=== PATIENT | female | born 1980 | race Caucasian/White ===

== ENCOUNTER → 2024-08-14 | Day surgery (SDC) | payer BC ==
[~2024-08-14] MED LIST: DEXAMETHASONE SOD PHOS INJ 4 MG/ML SDV ONE; FENTANYL CITRATE/PF 100MCG/2 ML INJ ONE; HAIR, SKIN AND1 EAC1; LACTATED RINGER'S 1,000 ML ONE; LIDOCAINE HCL 2% LOCAL INJ 5 ML SDV VIAL INJ ONE; MIDAZOLAM HCL 2 MG/2 ML VIAL ONE; OMEPRAZOLE40 MG PO; ONDANSETRON HCL INJ 2MG/ML 2ML 2 MG/ML VIAL ONE; PROPOFOL IV EMULSION 10 MG/ML 20 ML VIAL ONE
[2024-08-14] MEDS: CEFAZOLIN SODIUM 2 GM ONE (12:25)
[2024-08-14] MEDS: LACTATED RINGER'S 1,000 ML ONE (12:25)
[2024-08-14 15:05] VITALS: BP 118/69; PULSE 49; RESP 15; O2SAT 100
== END | disposition home or self-care (01) ==
LOC: OR 10:23
PROVIDERS: ATTEND Podiatrist Foot & Ankle Surgery
DX: M20.12 Hallux valgus (acquired), left foot (principal); M21.6X2 Other acquired deformities of left foot; K21.9 Gastro-esophageal reflux disease without esophagitis; Z88.1 Allergy status to other antibiotic agents; Z86.718 Personal history of other venous thrombosis and embolism
CPT/HCPCS: 28292; 28308 ×2; C1713; C1762; J0690; J1100; J2003; J2250; J2405; J2704; J3010; J7121